=== PATIENT | female | born 2000 | race Caucasian/White ===

== ENCOUNTER 2020-03-06 20:09 | Emergency (ER) | payer BC ==
[~2020-03-06] VITALS: Ht 160 cm; Wt 54.5 kg
[2020-03-06 20:29] VITALS: TEMP 98.3
[2020-03-06] MEDS ORDERED: SPRINTEC 35 MCG1 TAB PO (20:41)
[2020-03-06 21:02] VITALS: BP 112/70; PULSE 62
== END 2020-03-06 21:02 | disposition home or self-care (01) ==
LOC: COL.ER 20:09
DX: T16.2XXA Foreign body in left ear, initial encounter (principal); W45.8XXA Other foreign body or object entering through skin, initial encounter

== ENCOUNTER 2020-12-20 18:36 | Emergency (ER) | payer BC ==
[~2020-12-20] VITALS: Ht 160 cm; Wt 59.1 kg
[~2020-12-20 18:36] MED LIST: SPRINTEC 35 MCG1 TAB PO
[2020-12-20 19:15] VITALS: BP 116/67; PULSE 85
== END 2020-12-20 19:14 | disposition home or self-care (01) ==
LOC: COL.ER 18:36
DX: T16.2XXA Foreign body in left ear, initial encounter (principal)